=== PATIENT | male | born 1975 | race Two or more races ===

== ENCOUNTER 2019-10-23 01:34 | Emergency (ER) | payer SELFPAY ==
[~2019-10-23] VITALS: Ht 175.3 cm; Wt 75.0 kg
[2019-10-23] MEDS ORDERED: LEVO150 PO (01:41)
[2019-10-23] MEDS ORDERED: OxyCODONE HCL 5 MG IR TABLET PO ONE (02:15)
[2019-10-23] MEDS ORDERED: IBUPROFEN 600 MG TABLET PO ONE (02:15)
[2019-10-23 04:40] VITALS: BP 148/80
== END 2019-10-23 05:12 | disposition home or self-care (01) ==
LOC: EMS 01:35
DX: S93.402A Sprain of unspecified ligament of left ankle, initial encounter (principal); F17.210 Nicotine dependence, cigarettes, uncomplicated; W19.XXXA Unspecified fall, initial encounter; Y93.89 Activity, other specified; Y92.89 Other specified places as the place of occurrence of the external cause; Y99.8 Other external cause status
CPT/HCPCS: 29515